=== PATIENT | female | born 1950 | race Caucasian/White ===

== ENCOUNTER → 2016-09-28 | Outpatient (REF) | payer MEDICARE, OTHER | LOC: M SFHCWAGY 09:03 | PROVIDERS: ATTEND Nurse Practitioner Family | DX: N95.8 Other specified menopausal and perimenopausal disorders (principal); Z12.31 Encounter for screening mammogram for malignant neoplasm of breast; Z12.4 Encounter for screening for malignant neoplasm of cervix; Z12.12 Encounter for screening for malignant neoplasm of rectum | CPT/HCPCS: 82270; G0101; G0123 ==

== ENCOUNTER → 2016-10-21 | Outpatient (CLI) | payer MEDICARE, OTHER ==
--- NOTE | 2016-10-24 11:10 | DEXA ---
AP SPINE L1 - L4 0.912 -2.3 -0.7 LT FEMUR TOTAL 0.937 -0.6 0.6 RT FEMUR TOTAL 0.941 -0.5 0.7 TOTAL BODY TOTAL OTHER DUAL FEMUR FRAX* ASSESSMENT Risk factors: None. 10 year probability of fracture Major osteoporotic fracture 7.8 % Hip fracture 0.7 % COMMENTS: There is low bone density of the spine and hips. The density of the spine is decreased 5.9% since the initial exam on 01/11/2005. The spine density has decreased 4.6% since the most recent exam on 01/19/2010. The density of the left hip has decreased 0.2% since the initial exam on 2004. The density of the left hip has decreased 1.5% since the most recent exam on . The density of the right hip has increased 4.1% since the initial exam on 2004. The density of the right hip has decreased 1.3% since the most recent exam on . FOLLOW-UP: Recommendation for the next bone density exam: 2 years. [email or web address]
== END ==
LOC: M WHC 08:04
PROVIDERS: ATTEND Nurse Practitioner Family
DX: N95.8 Other specified menopausal and perimenopausal disorders (principal); Z78.0 Asymptomatic menopausal state

== ENCOUNTER 2018-03-09 07:12 | Day surgery (SDC) | payer MEDICARE, OTHER ==
[2018-03-09] MEDS: NS 1,000 ML IV (06:30)
[2018-03-09] MEDS ORDERED: PROPOFOL 500 MG/50 ML VIAL As Ordered (08:12)
[2018-03-09] MEDS ORDERED: LIDOCAINE 2% INJ 100 MG/5 ML SDV (FOR ANES.) As Ordered (08:12)
== END 2018-03-09 08:55 | disposition home or self-care (01) ==
LOC: M OPP 07:12
DX: Z12.11 Encounter for screening for malignant neoplasm of colon (principal); K64.0 First degree hemorrhoids
CPT/HCPCS: G0121

== ENCOUNTER → 2018-10-18 | Outpatient (REF) | payer MEDICARE, OTHER ==
[~2018-10-18] MED LIST: CALC600T57 PO; ZANT150T40 PO
== END ==
LOC: M SFHCWAGY 08:49
PROVIDERS: ATTEND Nurse Practitioner Family
DX: Z12.4 Encounter for screening for malignant neoplasm of cervix (principal)
CPT/HCPCS: G0101; G0123

== ENCOUNTER → 2020-03-31 | Outpatient (CLI) | payer SELFPAY | LOC: M LABSMTC 09:43 | PROVIDERS: ATTEND Pediatrics | DX: Z11.59 Encounter for screening for other viral diseases (principal) ==

== ENCOUNTER → 2021-05-05 | Outpatient (CLI) | payer MEDICARE, OTHER | LOC: M WHC 13:48 | PROVIDERS: ATTEND Nurse Practitioner Women's Health | DX: M85.88 Other specified disorders of bone density and structure, other site (principal); M85.851 Other specified disorders of bone density and structure, right thigh; M85.852 Other specified disorders of bone density and structure, left thigh; Z13.820 Encounter for screening for osteoporosis ==

== ENCOUNTER 2022-10-18 09:56 | Day surgery (SDC) | payer MEDICARE, OTHER ==
[~2022-10-18] VITALS: Ht 170.2 cm; Wt 103.9 kg
[~2022-10-18 09:56] MED LIST changes: +LIDOCAINE 2% W/EPINEPHRINE 20ML VIAL **PRES FREE As Ordered ONE; +MIDAZOLAM INJ 2MG/2ML VIAL As Ordered ONE; +POVIDONE-IODINE 5% OPHTH PREP SOL 30ML As Ordered ONE; +TOBRADEX OPHTH OINT 3.5 GM As Ordered ONE; +fentaNYL 100 MCG/2 ML INJECTION As Ordered ONE
[2022-10-18] MEDS ORDERED: LR 1,000 ML IV SCH (11:45)
[2022-10-18] MEDS ORDERED: CIPROFLOXACIN 0.3% OPHTH OINTMENT As Ordered ONE (11:48)
[2022-10-18] MEDS ORDERED: LIDOCAINE 4% TOPICAL SOLN 50 ML BTL As Ordered ONE (11:48)
[2022-10-18] MEDS ORDERED: TETRACAINE 0.5% OPHTH SOLN 4ML As Ordered ONE (11:48)
[2022-10-18] MEDS ORDERED: SODIUM BICARBONATE 4.2% INJ 10ML SYRINGE As Ordered ONE (11:48)
[2022-10-18] MEDS ORDERED: propofoL 200 MG/20 ML VIAL As Ordered ONE (12:33)
[2022-10-18] MEDS ORDERED: LIDOCAINE 2% 100MG/5ML SDV (FOR ANES.) As Ordered ONE (12:36)
[2022-10-18] MEDS ORDERED: ONDANSETRON 4MG 2ML VIAL As Ordered ONE (12:58)
[2022-10-18 13:20] VITALS: BP 143/75; TEMP 96.6; O2SAT 95
== END 2022-10-18 13:54 | disposition home or self-care (01) ==
LOC: M SDC 09:56
PROVIDERS: ATTEND Ophthalmology
DX: H02.834 Dermatochalasis of left upper eyelid (principal); H02.831 Dermatochalasis of right upper eyelid; K21.9 Gastro-esophageal reflux disease without esophagitis; E78.5 Hyperlipidemia, unspecified; Z85.828 Personal history of other malignant neoplasm of skin; E07.9 Disorder of thyroid, unspecified; Z79.899 Other long term (current) drug therapy
CPT/HCPCS: 15823; 88302; J1100; J2250; J2405; J3010

== ENCOUNTER → 2023-05-29 | Outpatient (REF) | payer MEDICARE, OTHER ==
[~2023-05-29] MED LIST changes: -LIDOCAINE 2% W/EPINEPHRINE 20ML VIAL **PRES FREE As Ordered ONE; -MIDAZOLAM INJ 2MG/2ML VIAL As Ordered ONE; -POVIDONE-IODINE 5% OPHTH PREP SOL 30ML As Ordered ONE; -TOBRADEX OPHTH OINT 3.5 GM As Ordered ONE; -fentaNYL 100 MCG/2 ML INJECTION As Ordered ONE
[2023-05-29 17:07] LABS: URIC ACID 7.3 MG/DL (3.1-7.8)
[2023-05-29 17:09] LABS: C REACTIVE PROTEIN QUANTITATIV 2.2 MG/DL (<1.0)
== END ==
LOC: M LAB REF 16:31
PROVIDERS: ATTEND Nurse Practitioner Family
DX: M25.50 Pain in unspecified joint (principal)

== ENCOUNTER → 2025-04-23 | Outpatient (CLI) | payer MEDICARE, OTHER | LOC: M SOG 07:39 | PROVIDERS: ATTEND Orthopaedic Surgery | DX: M25.551 Pain in right hip (principal) ==